=== PATIENT | female | born 1940 | race Caucasian/White ===

== ENCOUNTER 2022-04-08 10:34 | Emergency (ER) | payer MEDICARE, OTHER | END 2022-04-08 11:19 | disposition home or self-care (01) | LOC: VM.ED 10:34 | DX: B02.9 Zoster without complications (principal); I48.91 Unspecified atrial fibrillation; I11.0 Hypertensive heart disease with heart failure; I50.9 Heart failure, unspecified; E11.42 Type 2 diabetes mellitus with diabetic polyneuropathy; Z88.8 Allergy status to other drugs, medicaments and biological substances | CPT/HCPCS: 99282 ==

== ENCOUNTER 2023-02-23 09:55 | Emergency (ER) | payer MEDICARE, OTHER ==
[2023-02-23 10:16] LABS: APPEARANCE,URINE CLOUDY (CLEAR); BILIRUBIN,URINE NEGATIVE (NEGATIVE); COLOR,URINE YELLOW (YELLOW); GLUCOSE,URINE NEGATIVE (NEGATIVE); KETONES,URINE NEGATIVE (NEGATIVE); NITRITE,URINE NEGATIVE (NEGATIVE); OCCULT BLOOD,URINE LARGE (NEGATIVE); PH,URINE 5.5 (5.0-8.0); PROTEIN,URINE 100 mg/dL (NEGATIVE); UROBILINOGEN,URINE 0.2 EU/dL (0.2)
[2023-02-23 10:26] LABS: LEUKOCYTE ESTERASE,URINE MODERATE (NEGATIVE)
[2023-02-23 10:27] LABS: BASOPHILS PERCENT AUTO 0.4 % (0.2-1.2); EOSINOPHILS ABSOLUTE AUTO 0.3 x10^3/uL (0.0-0.5); EOSINOPHILS PERCENT AUTO 4.2 % (0.0-4.0); HEMATOCRIT 39.6 % (33.0-47.0); IMMATURE GRAN ABSOLUTE AUTO 0.02 x10^3/uL (0.00-0.07); LYMPHOCYTES ABSOLUTE AUTO 2.2 x10^3/uL (1.0-4.8); LYMPHOCYTES PERCENT AUTO 28.9 % (25.0-50.0); MEAN CORPUSCULAR HEMOGLOBIN 30.9 pg (26.0-32.0); MEAN CORPUSCULAR HGB CONC 32.8 g/dL (32.0-36.0); MEAN CORPUSCULAR VOLUME 94.1 fL (78.0-93.0); MONOCYTES ABSOLUTE AUTO 0.8 x10^3/uL (0.0-0.8); MONOCYTES PERCENT AUTO 10.6 % (2.0-11.0); NEUTROPHILS ABSOLUTE AUTO 4.3 x10^3/uL (1.8-7.7); NEUTROPHILS PERCENT AUTO 55.6 % (50.0-80.0); PLATELET COUNT,PLT 201 x10^3/uL (130-400); RED BLOOD CELL COUNT 4.21 x10^6/uL (4.00-5.50); WHITE BLOOD CELL COUNT,WBC 7.7 x10^3/uL (4.0-10.0)
[2023-02-23 10:27] LABS: AMORPHOUS SEDIMENT,URINE FEW; BACTERIA,URINE FEW /HPF (NOT SEEN); MUCUS,URINE MODERATE /LPF (NOT SEEN); RBC,URINE 40-50 /HPF (NOT SEEN); SQUAMOUS EPITHELIAL CELLS,UR RARE /HPF (NOT SEEN); WBC,URINE 50-75 /HPF (NOT SEEN)
[2023-02-23 10:35] LABS: ANION GAP 9.7 mmol/L (5-15); BLOOD UREA NITROGEN,BUN 28 mg/dL (7-18); CALCIUM 9.3 mg/dL (8.5-10.1); CARBON DIOXIDE,CO2 31 mmol/L (21-32); CHLORIDE,CL 105 mmol/L (98-107); CREATININE 1.2 mg/dL (0.55-1.02); ESTIMATED GFR 46 mL/min (>=60); GLUCOSE RANDOM 162 mg/dL (70-99); POTASSIUM,K 3.7 mmol/L (3.5-5.1); SODIUM,NA 142 mmol/L (136-145)
[2023-02-23 10:39] LABS: INR 2.1 (0.9-1.1); PROTHROMBIN TIME 21.8 SEC (9.5-12.2); PTT,PARTIAL THROMBOPLSTIN TIME 29.2 SEC (23.6-33.6)
== END 2023-02-23 11:00 | disposition home or self-care (01) ==
LOC: VM.ED 09:55
DX: N39.0 Urinary tract infection, site not specified (principal); I48.91 Unspecified atrial fibrillation; I10 Essential (primary) hypertension; E78.00 Pure hypercholesterolemia, unspecified; E11.9 Type 2 diabetes mellitus without complications; Z86.16 Personal history of COVID-19; Z79.899 Other long term (current) drug therapy; Z88.8 Allergy status to other drugs, medicaments and biological substances
CPT/HCPCS: 36415; 80048; 81001; 85025; 85610; 85730; 87086; 87088; 87186; 99283; 99284

== ENCOUNTER 2023-05-30 13:54 | Inpatient (IN) | payer MEDICARE, OTHER ==
[2023-05-30] MEDS ORDERED: Lactobacillus Rhamnosus GG (Probiotic) Cap PO PRN (18:08)
[2023-05-30] MEDS ORDERED: Sennosides 8.6 MG Tab PO PRN (18:08)
[2023-05-30] MEDS ORDERED: Ondansetron 4 MG Tab.DIS PO PRN (18:08)
[2023-05-30] MEDS: levETIRAcetam 500 MG Tab PO SCH (20:44)
[2023-05-30] MEDS: Calcium Carbonate/Vitamin D3 1250 MG-5 MCG Tab PO SCH (20:44)
[2023-05-30] MEDS: D-Mannose 500 MG Cap PO SCH (20:44)
[2023-05-30] MEDS: Gabapentin 100 MG Cap PO SCH (20:44)
[2023-05-31] MEDS: Pantoprazole 40 MG Tab.CR PO SCH ×2 (06:14→16:53)
[2023-05-31 07:48] LABS: INR 2.8 (0.9-1.1); PROTHROMBIN TIME 29.3 SEC (9.5-12.2)
[2023-05-31] MEDS: D-Mannose 500 MG Cap PO SCH ×2 (09:01→20:04)
[2023-05-31] MEDS: predniSONE 1 MG Tab PO SCH (09:03)
[2023-05-31] MEDS: Spironolactone 25 MG Tab PO SCH (09:03)
[2023-05-31] MEDS: Gabapentin 100 MG Cap PO SCH ×2 (09:03→20:04)
[2023-05-31] MEDS: glipiZIDE 10 MG Tab.ER PO SCH (09:04)
[2023-05-31] MEDS: atorvaSTATin 40 MG Tab PO SCH (09:05)
[2023-05-31] MEDS: Metoprolol Succinate 25 MG Tab.ER PO SCH (09:05)
[2023-05-31] MEDS: Furosemide 40 MG Tab PO SCH (09:06)
[2023-05-31] MEDS: Ascorbic Acid 500 MG Tab PO SCH (09:07)
[2023-05-31] MEDS: Lisinopril 5 MG Tab PO SCH (09:07)
[2023-05-31] MEDS: Clopidogrel 75 MG Tab PO SCH (09:07)
[2023-05-31] MEDS: Multivitamin Tab PO SCH (09:08)
[2023-05-31] MEDS: Calcium Carbonate/Vitamin D3 1250 MG-5 MCG Tab PO SCH ×2 (09:08→20:04)
[2023-05-31] MEDS: Warfarin 2 MG Tab PO SCH (09:14)
[2023-05-31] MEDS: levETIRAcetam 500 MG Tab PO SCH ×2 (09:15→20:04)
[2023-05-31] MEDS: Estradiol 0.01% Vaginal Crm 42.5 GM Tube VAG SCH (09:15)
[2023-05-31] MEDS: [UNRECOGNIZED DRUG - OTHER] EYEBOTH SCH (20:07)
[2023-06-01] MEDS: Pantoprazole 40 MG Tab.CR PO SCH ×2 (06:12→17:35)
[2023-06-01] MEDS: Multivitamin Tab PO SCH (08:05)
[2023-06-01] MEDS: D-Mannose 500 MG Cap PO SCH ×2 (08:05→20:01)
[2023-06-01] MEDS: levETIRAcetam 500 MG Tab PO SCH ×2 (08:05→20:01)
[2023-06-01] MEDS: Calcium Carbonate/Vitamin D3 1250 MG-5 MCG Tab PO SCH ×2 (08:05→20:01)
[2023-06-01] MEDS: Ascorbic Acid 500 MG Tab PO SCH (08:05)
[2023-06-01] MEDS: Spironolactone 25 MG Tab PO SCH (08:06)
[2023-06-01] MEDS: Gabapentin 100 MG Cap PO SCH ×2 (08:07→20:02)
[2023-06-01] MEDS: Furosemide 40 MG Tab PO SCH (08:08)
[2023-06-01] MEDS: glipiZIDE 10 MG Tab.ER PO SCH (08:08)
[2023-06-01] MEDS: Clopidogrel 75 MG Tab PO SCH (08:09)
[2023-06-01] MEDS: Metoprolol Succinate 25 MG Tab.ER PO SCH (08:09)
[2023-06-01] MEDS: Lisinopril 5 MG Tab PO SCH (08:09)
[2023-06-01] MEDS: atorvaSTATin 40 MG Tab PO SCH (08:10)
[2023-06-01] MEDS: predniSONE 1 MG Tab PO SCH (08:10)
[2023-06-01] MEDS: Warfarin 2 MG Tab PO SCH (10:45)
[2023-06-01] MEDS: [UNRECOGNIZED DRUG - OTHER] EYEBOTH SCH (20:04)
[2023-06-02] MEDS: Pantoprazole 40 MG Tab.CR PO SCH ×2 (06:19→17:09)
[2023-06-02] MEDS: levETIRAcetam 500 MG Tab PO SCH ×2 (08:21→20:23)
[2023-06-02] MEDS: Gabapentin 100 MG Cap PO SCH ×2 (08:21→20:23)
[2023-06-02] MEDS: Calcium Carbonate/Vitamin D3 1250 MG-5 MCG Tab PO SCH ×2 (08:21→20:23)
[2023-06-02] MEDS: Ascorbic Acid 500 MG Tab PO SCH (08:21)
[2023-06-02] MEDS: predniSONE 1 MG Tab PO SCH (08:21)
[2023-06-02] MEDS: D-Mannose 500 MG Cap PO SCH ×2 (08:21→20:22)
[2023-06-02] MEDS: Metoprolol Succinate 25 MG Tab.ER PO SCH (08:23)
[2023-06-02] MEDS: Multivitamin Tab PO SCH (08:24)
[2023-06-02] MEDS: atorvaSTATin 40 MG Tab PO SCH (08:24)
[2023-06-02] MEDS: glipiZIDE 10 MG Tab.ER PO SCH (08:24)
[2023-06-02] MEDS: Furosemide 40 MG Tab PO SCH (08:25)
[2023-06-02] MEDS: Lisinopril 5 MG Tab PO SCH (08:26)
[2023-06-02] MEDS: Warfarin 2 MG Tab PO SCH (08:41)
[2023-06-02] MEDS: Spironolactone 25 MG Tab PO SCH (08:43)
[2023-06-02] MEDS: Clopidogrel 75 MG Tab PO SCH (08:48)
[2023-06-02] MEDS: [UNRECOGNIZED DRUG - OTHER] EYEBOTH SCH (20:22)
[2023-06-03] MEDS: Pantoprazole 40 MG Tab.CR PO SCH ×2 (06:19→16:58)
[2023-06-03 07:24] LABS: INR 2.6 (0.9-1.1); PROTHROMBIN TIME 27.2 SEC (9.5-12.2)
[2023-06-03] MEDS: Furosemide 40 MG Tab PO SCH (09:17)
[2023-06-03] MEDS: predniSONE 1 MG Tab PO SCH (09:17)
[2023-06-03] MEDS: Gabapentin 100 MG Cap PO SCH ×2 (09:17→20:01)
[2023-06-03] MEDS: Spironolactone 25 MG Tab PO SCH (09:18)
[2023-06-03] MEDS: Ascorbic Acid 500 MG Tab PO SCH (09:18)
[2023-06-03] MEDS: Lisinopril 5 MG Tab PO SCH (09:18)
[2023-06-03] MEDS: Calcium Carbonate/Vitamin D3 1250 MG-5 MCG Tab PO SCH ×2 (09:18→20:01)
[2023-06-03] MEDS: glipiZIDE 10 MG Tab.ER PO SCH (09:18)
[2023-06-03] MEDS: atorvaSTATin 40 MG Tab PO SCH (09:18)
[2023-06-03] MEDS: Multivitamin Tab PO SCH (09:19)
[2023-06-03] MEDS: D-Mannose 500 MG Cap PO SCH ×2 (09:19→20:01)
[2023-06-03] MEDS: levETIRAcetam 500 MG Tab PO SCH ×2 (09:19→20:01)
[2023-06-03] MEDS: Clopidogrel 75 MG Tab PO SCH (09:19)
[2023-06-03] MEDS: Metoprolol Succinate 25 MG Tab.ER PO SCH (09:19)
[2023-06-03] MEDS: Estradiol 0.01% Vaginal Crm 42.5 GM Tube VAG SCH (09:29)
[2023-06-03] MEDS: Warfarin 2 MG Tab PO SCH (09:44)
[2023-06-03] MEDS: [UNRECOGNIZED DRUG - OTHER] EYEBOTH SCH (20:01)
[2023-06-04] MEDS: Pantoprazole 40 MG Tab.CR PO SCH ×2 (06:07→17:08)
[2023-06-04] MEDS: Calcium Carbonate/Vitamin D3 1250 MG-5 MCG Tab PO SCH ×2 (08:47→20:06)
[2023-06-04] MEDS: Multivitamin Tab PO SCH (08:48)
[2023-06-04] MEDS: levETIRAcetam 500 MG Tab PO SCH ×2 (08:48→20:06)
[2023-06-04] MEDS: Ascorbic Acid 500 MG Tab PO SCH (08:48)
[2023-06-04] MEDS: Gabapentin 100 MG Cap PO SCH ×2 (08:48→20:06)
[2023-06-04] MEDS: Furosemide 40 MG Tab PO SCH (08:48)
[2023-06-04] MEDS: D-Mannose 500 MG Cap PO SCH ×2 (08:48→20:06)
[2023-06-04] MEDS: Spironolactone 25 MG Tab PO SCH (08:49)
[2023-06-04] MEDS: atorvaSTATin 40 MG Tab PO SCH (08:51)
[2023-06-04] MEDS: Metoprolol Succinate 25 MG Tab.ER PO SCH (08:51)
[2023-06-04] MEDS: predniSONE 1 MG Tab PO SCH (08:52)
[2023-06-04] MEDS: Clopidogrel 75 MG Tab PO SCH (08:52)
[2023-06-04] MEDS: Lisinopril 5 MG Tab PO SCH (08:52)
[2023-06-04] MEDS: glipiZIDE 10 MG Tab.ER PO SCH (08:52)
[2023-06-04] MEDS ORDERED: Warfarin 5 MG Tab PO SCH (09:00)
[2023-06-04] MEDS: [UNRECOGNIZED DRUG - OTHER] EYEBOTH SCH (20:52)
[2023-06-05] MEDS: Pantoprazole 40 MG Tab.CR PO SCH ×2 (06:04→16:31)
[2023-06-05] MEDS: atorvaSTATin 40 MG Tab PO SCH (08:20)
[2023-06-05] MEDS: Lisinopril 5 MG Tab PO SCH (08:20)
[2023-06-05] MEDS: glipiZIDE 10 MG Tab.ER PO SCH (08:20)
[2023-06-05] MEDS: predniSONE 1 MG Tab PO SCH (08:20)
[2023-06-05] MEDS: Clopidogrel 75 MG Tab PO SCH (08:21)
[2023-06-05] MEDS: Warfarin 2 MG Tab PO SCH (08:21)
[2023-06-05] MEDS: Furosemide 40 MG Tab PO SCH (08:21)
[2023-06-05] MEDS: Calcium Carbonate/Vitamin D3 1250 MG-5 MCG Tab PO SCH ×2 (08:21→20:35)
[2023-06-05] MEDS: Spironolactone 25 MG Tab PO SCH (08:21)
[2023-06-05] MEDS: Multivitamin Tab PO SCH (08:22)
[2023-06-05] MEDS: levETIRAcetam 500 MG Tab PO SCH ×2 (08:22→20:35)
[2023-06-05] MEDS: Gabapentin 100 MG Cap PO SCH ×2 (08:22→20:35)
[2023-06-05] MEDS: Ascorbic Acid 500 MG Tab PO SCH (08:22)
[2023-06-05] MEDS: D-Mannose 500 MG Cap PO SCH ×2 (08:22→20:35)
[2023-06-05] MEDS: Metoprolol Succinate 25 MG Tab.ER PO SCH (08:22)
[2023-06-05] MEDS: [UNRECOGNIZED DRUG - OTHER] EYEBOTH SCH (20:38)
[2023-06-06] MEDS: Pantoprazole 40 MG Tab.CR PO SCH (06:29)
[2023-06-06] MEDS: Clopidogrel 75 MG Tab PO SCH (08:01)
[2023-06-06] MEDS: predniSONE 1 MG Tab PO SCH (08:01)
[2023-06-06] MEDS: Calcium Carbonate/Vitamin D3 1250 MG-5 MCG Tab PO SCH (08:02)
[2023-06-06] MEDS: Ascorbic Acid 500 MG Tab PO SCH (08:02)
[2023-06-06] MEDS: levETIRAcetam 500 MG Tab PO SCH (08:02)
[2023-06-06] MEDS: atorvaSTATin 40 MG Tab PO SCH (08:02)
[2023-06-06] MEDS: Multivitamin Tab PO SCH (08:02)
[2023-06-06] MEDS: Spironolactone 25 MG Tab PO SCH (08:02)
[2023-06-06] MEDS: D-Mannose 500 MG Cap PO SCH (08:02)
[2023-06-06] MEDS: Furosemide 40 MG Tab PO SCH (08:03)
[2023-06-06] MEDS: Gabapentin 100 MG Cap PO SCH (08:03)
[2023-06-06] MEDS: glipiZIDE 10 MG Tab.ER PO SCH (08:03)
[2023-06-06] MEDS: Lisinopril 5 MG Tab PO SCH (08:03)
[2023-06-06] MEDS: Metoprolol Succinate 25 MG Tab.ER PO SCH (08:04)
[2023-06-06] MEDS: Warfarin 2 MG Tab PO SCH (08:04)
[2023-06-06] MEDS: Estradiol 0.01% Vaginal Crm 42.5 GM Tube VAG SCH (09:23)
[2023-06-06 13:53] LABS: APPEARANCE,URINE SLIGHTLY CLOUDY (CLEAR); BILIRUBIN,URINE NEGATIVE (NEGATIVE); COLOR,URINE YELLOW (YELLOW); GLUCOSE,URINE NEGATIVE (NEGATIVE); KETONES,URINE NEGATIVE (NEGATIVE); LEUKOCYTE ESTERASE,URINE MODERATE (NEGATIVE); NITRITE,URINE POSITIVE (NEGATIVE); OCCULT BLOOD,URINE NEGATIVE (NEGATIVE); PROTEIN,URINE NEGATIVE (NEGATIVE); UROBILINOGEN,URINE 0.2 EU/dL (0.2)
[2023-06-06 14:07] LABS: RBC,URINE NOT SEEN /HPF (NOT SEEN); SQUAMOUS EPITHELIAL CELLS,UR RARE /HPF (NOT SEEN)
[2023-06-06 14:08] LABS: BACTERIA,URINE MODERATE /HPF (NOT SEEN); HYALINE CASTS,URINE RARE; MUCUS,URINE NOT SEEN /LPF (NOT SEEN)
== END 2023-06-06 15:20 | disposition home health service (06) | DRG 947 ==
LOC: VM.MS 16:26
PROVIDERS: ADMIT Nurse Practitioner Family; ATTEND Nurse Practitioner Family
DX: R53.1 Weakness (principal); G93.41 Metabolic encephalopathy; I50.42 Chronic combined systolic (congestive) and diastolic (congestive) heart failure; I48.19 Other persistent atrial fibrillation; N39.0 Urinary tract infection, site not specified; R44.3 Hallucinations, unspecified; R53.81 Other malaise; R39.15 Urgency of urination; K59.09 Other constipation; E11.21 Type 2 diabetes mellitus with diabetic nephropathy; E11.69 Type 2 diabetes mellitus with other specified complication; I25.10 Atherosclerotic heart disease of native coronary artery without angina pectoris; F41.9 Anxiety disorder, unspecified; K21.9 Gastro-esophageal reflux disease without esophagitis; G47.31 Primary central sleep apnea; M35.3 Polymyalgia rheumatica; I15.2 Hypertension secondary to endocrine disorders; Z95.0 Presence of cardiac pacemaker; Z86.16 Personal history of COVID-19; Z90.710 Acquired absence of both cervix and uterus; Z90.722 Acquired absence of ovaries, bilateral; Z90.79 Acquired absence of other genital organ(s); Z96.651 Presence of right artificial knee joint; Z95.5 Presence of coronary angioplasty implant and graft; Z90.49 Acquired absence of other specified parts of digestive tract; Z90.89 Acquired absence of other organs; Z98.890 Other specified postprocedural states; Z88.8 Allergy status to other drugs, medicaments and biological substances; Z79.84 Long term (current) use of oral hypoglycemic drugs; Z79.02 Long term (current) use of antithrombotics/antiplatelets; Z79.899 Other long term (current) drug therapy; Z79.01 Long term (current) use of anticoagulants; Z91.81 History of falling
CPT/HCPCS: 36415; 81001; 85610; 87086; 87088; 87186; 95851-GO; 97110-GP; 97116-GP; 97162-GP; 97165-GO; 97535-GO; 99315; A9270-GY; J7512